=== PATIENT | male | born 1985 | race Caucasian/White ===

== ENCOUNTER 2023-12-01 10:34 | Emergency (ER) | payer MEDICAID ==
[~2023-12-01] VITALS: Ht 177.8 cm; Wt 120.0 kg
[2023-12-01 11:01] VITALS: O2SAT 99
[2023-12-01] MEDS ORDERED: BUSP30TA2 MT (11:38)
[2023-12-01] MEDS ORDERED: ABIL10 MT (11:38)
[2023-12-01] MEDS ORDERED: TRAZ150T78 MT (11:38)
[2023-12-01] MEDS ORDERED: BUPR300T52 MT (11:38)
[2023-12-01] MEDS: ARIPIPRAZOLE 5MG TABLET PO ONE (11:45)
[2023-12-01 13:24] LABS: BASOPHILS % 0.6 % (0.0-2.0); EOSINOPHILS % 0.6 % (0.0-5.0); HEMATOCRIT. 42.8 % (42.0-52.0); HEMOGLOBIN. 14.6 g/dL (14.0-18.0); LYMPHOCYTES % 13.8 % (20.0-50.0); MEAN CORPUSCULAR HEMOGLOBIN 30.1 pg (28.0-32.0); MEAN CORPUSCULAR HGB CONC 34.1 g/dL (31.0-37.0); MEAN CORPUSCULAR VOLUME 88.3 fL (80.0-94.0); MEAN PLATELET VOLUME 7.8 fl (7.4-10.4); MONOCYTES % 4.8 % (2.0-8.0); NEUTROPHILS % 80.2 % (40.0-76.0); PLATELET 289 x1000/uL (130-400); RED BLOOD CELL COUNT 4.85 mill/uL (4.7-6.1); RED CELL DISTRIBUTION WIDTH 12.9 % (11.6-14.6); WHITE BLOOD COUNT 9.8 x1000/uL (4.5-11.0)
[2023-12-01 13:31] LABS: CLARITY URINE CLEAR (CLEAR); COLOR URINE YELLOW (YELLOW); GLUCOSE URINE NEGATIVE (NEGATIVE); KETONES URINE 1+ (NEGATIVE); LEUKOCYTE ESTERASE URINE NEGATIVE (NEGATIVE); NITRITE URINE NEGATIVE (NEGATIVE); OCCULT BLOOD URINE NEGATIVE (NEGATIVE); PH URINE 6.5 (4.5-8.0); PROTEIN URINE NEGATIVE (NEGATIVE); SPECIFIC GRAVITY URINE 1.023 (1.005-1.030); UROBILINOGEN URINE 0.2 E.U./dL (0.2-1.0)
[2023-12-01 13:38] LABS: CHLORIDE 106 mEq/L (98-107); POTASSIUM 3.5 mEq/L (3.5-5.1); SODIUM 141 mEq/L (136-145)
[2023-12-01 13:39] LABS: CALCIUM 9.8 mg/dL (8.7-10.4); CARBON DIOXIDE 25 mEq/L (21-32)
[2023-12-01 13:44] LABS: CREATININE 1.1 mg/dL (0.6-1.3); GLUCOSE 124 mg/dL (70-105); UREA NITROGEN BLOOD 10 mg/dL (9-23)
[2023-12-01 13:46] LABS: ACETAMINOPHEN < 2 ug/mL (10-30); ALANINE AMINOTRANSFERASE 14 IU/L (10-49); ALBUMIN 4.8 g/dL (3.2-4.8); ASPARTATE AMINOTRANSFERASE 19 IU/L (<34)
[2023-12-01 13:47] LABS: BILIRUBIN TOTAL 0.7 mg/dL (0.1-1.0); PROTEIN TOTAL 7.4 g/dL (6.0-8.3)
[2023-12-01 13:50] LABS: ETHANOL BLOOD < 10 mg/dL (<10)
[2023-12-01 13:55] LABS: *AMPHETAMINES SCREEN URINE PRESUMPTIVE POSITIVE (NEGATIVE); *BARBITURATES SCREEN URINE NEGATIVE (NEGATIVE); *COCAINE SCREEN URINE NEGATIVE (NEGATIVE); ECSTASY MDMA SCREEN URINE CONF.TEST INDICATED (NEGATIVE); METHADONE URINE SCREEN NEGATIVE (NEGATIVE); OPIATES URINE SCREEN NEGATIVE (NEGATIVE); PHENCYCLIDINE URINE SCREEN NEGATIVE (NEGATIVE)
[2023-12-02 08:55] VITALS: TEMP 97.9
[2023-12-02 11:40] VITALS: BP 132/82; PULSE 80; RESP 16
== END 2023-12-02 11:42 | disposition home or self-care (01) ==
LOC: ER 10:58
DX: R45.851 Suicidal ideations (principal); F20.9 Schizophrenia, unspecified; F31.9 Bipolar disorder, unspecified; I10 Essential (primary) hypertension; Z20.822 Contact with and (suspected) exposure to COVID-19
CPT/HCPCS: 36415; 80053; 80305; 80307; 80320; 80329; 81003; 85025; 87426; 99285; G0480

== ENCOUNTER 2023-12-02 12:28 | Emergency (ER) | payer MEDICAID ==
[~2023-12-02] VITALS: Ht 182.9 cm; Wt 113.4 kg
[~2023-12-02 12:28] MED LIST: ABIL10 MT; BUPR300T52 MT; BUSP30TA2 MT; TRAZ150T78 MT
[2023-12-02 12:36] VITALS: O2SAT 100
[2023-12-02 18:08] LABS: *AMPHETAMINES SCREEN URINE PRESUMPTIVE POSITIVE (NEGATIVE); *BARBITURATES SCREEN URINE NEGATIVE (NEGATIVE); *COCAINE SCREEN URINE NEGATIVE (NEGATIVE); METHADONE URINE SCREEN NEGATIVE (NEGATIVE)
[2023-12-02 18:09] LABS: ECSTASY MDMA SCREEN URINE NEGATIVE (NEGATIVE); OPIATES URINE SCREEN NEGATIVE (NEGATIVE); PHENCYCLIDINE URINE SCREEN NEGATIVE (NEGATIVE)
[2023-12-02 18:36] LABS: BASOPHILS % 0.8 % (0.0-2.0); EOSINOPHILS % 3.4 % (0.0-5.0); HEMATOCRIT. 45.9 % (42.0-52.0); HEMOGLOBIN. 15.6 g/dL (14.0-18.0); LYMPHOCYTES % 22.5 % (20.0-50.0); MEAN CORPUSCULAR HEMOGLOBIN 29.4 pg (28.0-32.0); MEAN CORPUSCULAR HGB CONC 33.9 g/dL (31.0-37.0); MEAN CORPUSCULAR VOLUME 86.8 fL (80.0-94.0); MEAN PLATELET VOLUME 7.7 fl (7.4-10.4); MONOCYTES % 10.2 % (2.0-8.0); NEUTROPHILS % 63.1 % (40.0-76.0); PLATELET 298 x1000/uL (130-400); RED BLOOD CELL COUNT 5.29 mill/uL (4.7-6.1); RED CELL DISTRIBUTION WIDTH 12.7 % (11.6-14.6); WHITE BLOOD COUNT 9.4 x1000/uL (4.5-11.0)
[2023-12-02 18:58] LABS: CHLORIDE 104 mEq/L (98-107); POTASSIUM 3.5 mEq/L (3.5-5.1); SODIUM 141 mEq/L (136-145)
[2023-12-02 18:59] LABS: CALCIUM 9.8 mg/dL (8.7-10.4); CARBON DIOXIDE 29 mEq/L (21-32)
[2023-12-02 19:04] LABS: CREATININE 1.1 mg/dL (0.6-1.3); GLUCOSE 81 mg/dL (70-105); UREA NITROGEN BLOOD 14 mg/dL (9-23)
[2023-12-02 19:06] LABS: ACETAMINOPHEN < 2 ug/mL (10-30)
[2023-12-02 19:08] LABS: ETHANOL BLOOD < 10 mg/dL (<10)
[2023-12-03] MEDS: BUPROPION HCL 100MG SR TABLET PO ONE (01:00)
[2023-12-03] MEDS: BUSPIRONE HCL 10MG TABLET PO ONE (02:04)
[2023-12-03] MEDS: TRAZODONE HCL 50MG TABLET PO SCH (02:04)
[2023-12-03] MEDS: BUSPIRONE HCL 10MG TABLET PO SCH (10:30)
[2023-12-03] MEDS: ARIPIPRAZOLE 5MG TABLET PO SCH (10:30)
[2023-12-03 11:08] VITALS: BP 130/81; PULSE 80; RESP 16; TEMP 37.00296; O2SAT 99
[2023-12-03] MEDS ORDERED: TRAZODONE HCL 50MG TABLET PO SCH (21:00)
== END 2023-12-03 10:53 ==
LOC: ER 12:28
DX: R45.851 Suicidal ideations (principal); F31.9 Bipolar disorder, unspecified; F15.90 Other stimulant use, unspecified, uncomplicated; Z86.59 Personal history of other mental and behavioral disorders
CPT/HCPCS: 36415; 80048; 80305; 80307; 80320; 80329; 85025; 99285; G0480

== ENCOUNTER 2023-12-11 16:13 | Emergency (ER) | payer MEDICAID ==
[~2023-12-11] VITALS: Ht 182.9 cm; Wt 113.0 kg
[2023-12-11 17:15] VITALS: O2SAT 100
[2023-12-11 17:50] LABS: BASOPHILS % 0.7 % (0.0-2.0); EOSINOPHILS % 0.7 % (0.0-5.0); HEMATOCRIT. 40.4 % (42.0-52.0); HEMOGLOBIN. 13.7 g/dL (14.0-18.0); LYMPHOCYTES % 20.3 % (20.0-50.0); MEAN CORPUSCULAR HEMOGLOBIN 29.7 pg (28.0-32.0); MEAN CORPUSCULAR HGB CONC 33.8 g/dL (31.0-37.0); MEAN CORPUSCULAR VOLUME 87.8 fL (80.0-94.0); MEAN PLATELET VOLUME 8.6 fl (7.4-10.4); MONOCYTES % 5.1 % (2.0-8.0); NEUTROPHILS % 73.2 % (40.0-76.0); PLATELET 254 x1000/uL (130-400); RED CELL DISTRIBUTION WIDTH 12.6 % (11.6-14.6); WHITE BLOOD COUNT 8.1 x1000/uL (4.5-11.0)
[2023-12-11 17:55] LABS: CHLORIDE 106 mEq/L (98-107); POTASSIUM 3.4 mEq/L (3.5-5.1); SODIUM 140 mEq/L (136-145)
[2023-12-11 17:56] LABS: CARBON DIOXIDE 27 mEq/L (21-32)
[2023-12-11 17:57] LABS: CALCIUM 9.5 mg/dL (8.7-10.4)
[2023-12-11 18:01] LABS: GLUCOSE 101 mg/dL (70-105)
[2023-12-11 18:02] LABS: UREA NITROGEN BLOOD 10 mg/dL (9-23)
[2023-12-11 18:03] LABS: ACETAMINOPHEN < 2 ug/mL (10-30)
[2023-12-11 18:10] LABS: ETHANOL BLOOD < 10 mg/dL (<10)
[2023-12-11 19:01] VITALS: TEMP 98.9
[2023-12-11 19:01] LABS: CLARITY URINE CLEAR (CLEAR); COLOR URINE YELLOW (YELLOW); GLUCOSE URINE NEGATIVE (NEGATIVE); KETONES URINE NEGATIVE (NEGATIVE); LEUKOCYTE ESTERASE URINE NEGATIVE (NEGATIVE); NITRITE URINE NEGATIVE (NEGATIVE); OCCULT BLOOD URINE NEGATIVE (NEGATIVE); PROTEIN URINE NEGATIVE (NEGATIVE); SPECIFIC GRAVITY URINE 1.011 (1.005-1.030); UROBILINOGEN URINE 0.2 E.U./dL (0.2-1.0)
[2023-12-11 19:10] LABS: *AMPHETAMINES SCREEN URINE PRESUMPTIVE POSITIVE (NEGATIVE); *BARBITURATES SCREEN URINE NEGATIVE (NEGATIVE); *BENZODIAZEPINES SCREEN URINE NEGATIVE (NEGATIVE); *COCAINE SCREEN URINE NEGATIVE (NEGATIVE); METHADONE URINE SCREEN NEGATIVE (NEGATIVE)
[2023-12-11 19:11] LABS: CANNABINOID URINE SCREEN NEGATIVE (NEGATIVE); ECSTASY MDMA SCREEN URINE CONF.TEST INDICATED (NEGATIVE); OPIATES URINE SCREEN NEGATIVE (NEGATIVE); PHENCYCLIDINE URINE SCREEN NEGATIVE (NEGATIVE)
[2023-12-12 13:04] VITALS: BP 157/85; PULSE 85; RESP 20
[2023-12-12] MEDS ORDERED: BUPR300T52 MT (17:03)
[2023-12-12] MEDS ORDERED: ABIL10 MT (17:03)
[2023-12-12] MEDS ORDERED: BUSP30TA2 MT (17:03)
[2023-12-12] MEDS ORDERED: TRAZ150T78 MT (17:03)
== END 2023-12-12 14:00 | disposition home or self-care (01) ==
LOC: ER 16:17
DX: R45.851 Suicidal ideations (principal); F31.9 Bipolar disorder, unspecified; I10 Essential (primary) hypertension; F20.9 Schizophrenia, unspecified
CPT/HCPCS: 36415; 80048; 80305; 80307; 80320; 80329; 81003; 85025; 99285; G0480

== ENCOUNTER 2023-12-12 14:21 | Emergency (ER) | payer MEDICAID ==
[~2023-12-12] VITALS: Ht 182.9 cm; Wt 113.4 kg
[2023-12-12 14:31] VITALS: BP 157/105; PULSE 88; RESP 16; TEMP 98.3; O2SAT 97
[2023-12-12] MEDS ORDERED: BUSP30TA2 MT (17:03)
[2023-12-12] MEDS ORDERED: BUPR300T52 MT (17:03)
[2023-12-12] MEDS ORDERED: TRAZ150T78 MT (17:03)
[2023-12-12] MEDS ORDERED: ABIL10 MT (17:03)
== END 2023-12-12 15:23 | disposition home or self-care (01) ==
LOC: ER 14:21
DX: R45.851 Suicidal ideations (principal); F20.9 Schizophrenia, unspecified; F15.10 Other stimulant abuse, uncomplicated
CPT/HCPCS: 99281

== ENCOUNTER 2023-12-12 15:40 | Emergency (ER) | payer MEDICAID ==
[~2023-12-12] VITALS: Ht 182.9 cm; Wt 113.4 kg
[2023-12-12 16:05] VITALS: O2SAT 100
[2023-12-12] MEDS ORDERED: BUSP30TA2 MT (17:03)
[2023-12-12] MEDS ORDERED: ABIL10 MT (17:03)
[2023-12-12] MEDS ORDERED: TRAZ150T78 MT (17:03)
[2023-12-12] MEDS ORDERED: BUPR300T52 MT (17:03)
[2023-12-12 17:13] VITALS: BP 149/98; PULSE 98; RESP 18; TEMP 98.2
== END 2023-12-12 17:16 | disposition home or self-care (01) ==
LOC: ER 15:40
DX: F20.9 Schizophrenia, unspecified (principal); F15.10 Other stimulant abuse, uncomplicated
CPT/HCPCS: 99281; 99283

== ENCOUNTER 2025-03-17 13:43 | Emergency (ER) | payer MEDICAID ==
[~2025-03-17] VITALS: Ht 182.9 cm; Wt 113.0 kg
[2025-03-17 13:49] VITALS: O2SAT 98
[2025-03-17] MEDS: ACETAMINOPHEN 325MG TABLET PO ONE (14:49)
[2025-03-17] MEDS ORDERED: IBUP-1455 MT (15:46)
[2025-03-17 15:57] VITALS: BP 114/84; PULSE 74; RESP 16; TEMP 36.7; O2SAT 97
== END 2025-03-17 15:57 | disposition home or self-care (01) ==
LOC: ER 13:43
DX: M25.561 Pain in right knee (principal); F20.9 Schizophrenia, unspecified; M25.461 Effusion, right knee; I10 Essential (primary) hypertension; J45.909 Unspecified asthma, uncomplicated; Z79.899 Other long term (current) drug therapy
CPT/HCPCS: 99283; 73562; A6449